=== PATIENT | female | born 1960 | race Caucasian/White ===

== ENCOUNTER 2017-10-29 17:44 | Emergency (ER) | payer OTHER ==
[~2017-10-29] VITALS: Ht 149.9 cm; Wt 65.8 kg
--- OUTSIDE RECORDS SUMMARY | 2017-10-29 17:49 | XMS REPORT ---
Author Author HUBER BOOGIE [facility] Address [address] [place] [address] Care Team Providers Care Account Manager Relief Name Role Phone HUBER BOOGIE Unavailable PROBLEMS Type Condition ICD9-CM Code [id number] Code Onset Dates Condition Status SNOMED Code Problem Other chronic pain G89.29 Active 87919380 Problem Hyperlipidemia, unspecified E78.5 Active 48915689 Problem Anxiety disorder, unspecified F41.9 Active 278522035 Problem Hypertension I10 Active 85710000 ALLERGIES No Information SOCIAL HISTORY Never Assessed PLAN OF CARE VITAL SIGNS MEDICATIONS Medication Instructions Dosage Frequency Start Date End Date Duration Status Xanax 0.5 MG Orally Twice a day 1 tablet 12h 19 Oct, 2016 28 days Active RESULTS No Results PROCEDURES No Known procedures IMMUNIZATIONS No Known Immunizations MEDICAL (GENERAL) HISTORY Type Description Date Medical History fibromyalgia Medical History hypertension Medical History hyperlipidemia Medical History hypoglycemia Surgical History cholecystectomy 1998 Surgical History hysterectomy 1982 Surgical History bilat breast biopsy (x3 total) Surgical History fuction fracture to right foot to restore blood flow to toes Surgical History Breast implants Hospitalization History surgeries
--- OUTSIDE RECORDS SUMMARY | 2017-10-29 17:50 | XMS REPORT ---
Author Author HUBER BOOGIE Organization [facility] Address [address] [place] [address] Care Team Providers Care Product Tester Name Role Phone HUBER BOOGIE Unavailable PROBLEMS Type Condition ICD9-CM Code [id number] Code Onset Dates Condition Status SNOMED Code Problem Hyperlipidemia, unspecified E78.5 Active 63474790 Problem Anxiety disorder, unspecified F41.9 Active 638953334 Problem Hypertension I10 Active 62252859 ALLERGIES Unknown Allergies SOCIAL HISTORY No smoking Hx information available PLAN OF CARE VITAL SIGNS MEDICATIONS Medication Instructions Dosage Frequency Start Date End Date Duration Status Xanax 0.5 MG Orally Twice a day 1 tablet 12h Oct, 28 days Active Gabapentin 300 MG Orally Once a day 1 capsule 24h Active Cyclobenzaprine HCl 10 MG Orally Three times a day 1 tablet 8h Active Atenolol 25 MG Orally Once a day 1 tablet 24h Sep, 90 Active Omeprazole Magnesium 20.6 (20 Base) MG Orally Once a day 1 tablet 24h Active Cymbalta 30 MG Orally Once a day 1 capsule 24h Jul, Active Estrace 1 MG Orally Once a day for HRT 1 tablet 30 Active Lovastatin 20 mg Orally Once a day 1 tablet with a meal 24h May, 30 day(s) Active RESULTS No Results PROCEDURES No Known procedures IMMUNIZATIONS No Known Immunizations
--- OUTSIDE RECORDS SUMMARY | 2017-10-29 17:50 | XMS REPORT ---
Author Author HUBER BOOGIE Organization [employer] Address Unknown Phone Unavailable Care Team Providers Care Resilient Tile Installer Name Role Phone HUBER BOOGIE CP Unavailable Allergies No Known Allergies Problems Problem Type Condition Code Onset Dates Condition Status Problem Hyperlipidemia 272.4 Active Problem Hypertension 401.9 Active Problem Anxiety state, unspecified 300.00 Active Medications Medication Code System Code Instructions Start Date End Date Status Dosage BusPIRone HCl [facility] [address]-06 5 MG Orally, Prn 2 times a day Aug 04, 2015 1 tablet Results No Known Results Summary Purpose [employer] Submission
--- OUTSIDE RECORDS SUMMARY | 2017-10-29 17:50 | XMS REPORT ---
Author Author HUBER BOOGIE [facility] [employer] Address Unknown Phone Unavailable Care Team Providers Care Network Administrator Name Role Phone HUBER BOOGIE CP Unavailable Allergies No Known Allergies Problems Problem Type Condition Code Onset Dates Condition Status Problem Anxiety disorder, unspecified F41.9 Active Problem Hypertension I10 Active Problem Hyperlipidemia, unspecified E78.5 Active Problem Hypertension 401.9 Active Problem Anxiety state, unspecified 300.00 Active Problem Hyperlipidemia 272.4 Active Medications No Known Medications Results No Known Results Summary Purpose [employer] Submission
--- OUTSIDE RECORDS SUMMARY | 2017-10-29 17:50 | XMS REPORT ---
Author Author HUBER BOOGIE [facility] Address [address] [place] [address] Care Team Providers Care Group Work Program Director Name Role Phone HUBER BOOGIE Unavailable PROBLEMS Type Condition ICD9-CM Code [id number] Code Onset Dates Condition Status SNOMED Code Problem Hyperlipidemia, unspecified E78.5 Active 83740386 Problem Anxiety disorder, unspecified F41.9 Active 674572491 Problem Hypertension I10 Active 65370240 ALLERGIES Unknown Allergies SOCIAL HISTORY No smoking Hx information available PLAN OF CARE VITAL SIGNS MEDICATIONS Medication Instructions Dosage Frequency Start Date End Date Duration Status Lovastatin 20 mg Orally Once a day 1 tablet with a meal 24h May, Active RESULTS No Results PROCEDURES No Known procedures IMMUNIZATIONS No Known Immunizations
--- OUTSIDE RECORDS SUMMARY | 2017-10-29 17:50 | XMS REPORT ---
Author Author HUBER BOOGIE [facility] Address [address] [place] [address] Care Team Providers Care Logistics Center Manager Name Role Phone HUBER BOOGIE Unavailable PROBLEMS Type Condition ICD9-CM Code [id number] Code Onset Dates Condition Status SNOMED Code Problem Other chronic pain G89.29 Active 86340242 Problem Hyperlipidemia, unspecified E78.5 Active 30684966 Problem Anxiety disorder, unspecified F41.9 Active 499371873 Problem Hypertension I10 Active 08690802 ALLERGIES No Information SOCIAL HISTORY Never Assessed PLAN OF CARE VITAL SIGNS MEDICATIONS Medication Instructions Dosage Frequency Start Date End Date Duration Status Xanax 0.5 MG Orally Twice a day 1 tablet 12h Oct, 28 days Active RESULTS No Results PROCEDURES [...]
--- OUTSIDE RECORDS SUMMARY | 2017-10-29 17:50 | XMS REPORT ---
Author Author HUBER BOOGIE [facility] Address [address] [place] [address] Care Team Providers Care Bowling Ball Grader And Marker Name Role Phone HUBER BOOGIE Unavailable PROBLEMS Type Condition ICD9-CM Code RAX96-[id number] Code Onset Dates Condition Status SNOMED Code Problem Hyperlipidemia, unspecified E78.5 Active 50660846 Problem Anxiety disorder, unspecified F41.9 Active 728090045 Problem Hypertension I10 Active 20871661 ALLERGIES Unknown Allergies SOCIAL HISTORY No smoking Hx information available PLAN OF CARE VITAL SIGNS MEDICATIONS Medication Instructions Dosage Frequency Start Date End Date Duration Status Xanax 0.5 MG Orally twice a day 1 tablet as needed 12h 17 Sep, 2015 28 days Active RESULTS No Results PROCEDURES No Known procedures IMMUNIZATIONS No Known Immunizations
--- OUTSIDE RECORDS SUMMARY | 2017-10-29 17:50 | XMS REPORT ---
Author Author HUBER BOOGIE Organization [employer] Address Unknown Phone Unavailable Care Team Providers Care Back Panel Padder Name Role Phone HUBER BOOGIE CP Unavailable Allergies No Known Allergies Problems Problem Type Condition Code Onset Dates Condition Status Problem Anxiety disorder, unspecified F41.9 Active Problem Hypertension I10 Active Problem Hyperlipidemia, unspecified E78.5 Active Problem Hypertension 401.9 Active Assessment Anxiety disorder, unspecified F41.9 Active Problem Anxiety state, unspecified 300.00 Active Problem Hyperlipidemia 272.4 Active Medications Medication Code System Code Instructions Start Date End Date Status Dosage Xanax [facility] [address]-26 0.5 MG Orally Once a day Oct 02, 2015 1 tablet at bedtime Results No Known Results Summary Purpose [employer] Submission
--- OUTSIDE RECORDS SUMMARY | 2017-10-29 17:50 | XMS REPORT ---
Author Author HUBER BOOGIE [facility] Address [address] [place] [address] Care Team Providers Care Trailer Assembler Name Role Phone HUBER BOOGIE Unavailable PROBLEMS Type Condition ICD9-CM Code [id number] Code Onset Dates Condition Status SNOMED Code Problem Other chronic pain G89.29 Active 30687871 Problem Hyperlipidemia, unspecified E78.5 Active 41849019 Problem Anxiety disorder, unspecified F41.9 Active 526709552 Problem Hypertension I10 Active 32398476 ALLERGIES No Information SOCIAL HISTORY Never Assessed [...]
--- OUTSIDE RECORDS SUMMARY | 2017-10-29 17:50 | XMS REPORT ---
Author Author HUBER BOOGIE Organization [employer] Address Unknown Phone Unavailable Care Team Providers Care Object Oriented Programmer Name Role Phone HUBER BOOGIE CP Unavailable Allergies No Known Allergies Problems Problem Type Condition Code Onset Dates Condition Status Problem Hypertension I10 Active Problem Anxiety state, unspecified 300.00 Active Problem Anxiety disorder, unspecified F41.9 Active Assessment Anxiety disorder, unspecified F41.9 Active Problem Hyperlipidemia 272.4 Active Problem Hypertension 401.9 Active Medications Medication Code System Code Instructions Start Date End Date Status Dosage Xanax [facility] [address]-88 0.5 MG Orally Once a day Oct 02, 2015 1 tablet at bedtime Results No Known Results Summary Purpose [employer] Submission
--- OUTSIDE RECORDS SUMMARY | 2017-10-29 17:50 | XMS REPORT ---
Author Author HUBER BOOGIE Organization [employer] Address Unknown Phone Unavailable Care Team Providers Care Technology Manager Name Role Phone HUBER BOOGIE CP Unavailable Allergies No Known Allergies Problems Problem Type Condition Code Onset Dates Condition Status Problem Hyperlipidemia 272.4 Active Problem Hypertension 401.9 Active Problem Anxiety state, unspecified 300.00 Active Medications Medication Code System Code Instructions Start Date End Date Status Dosage Atenolol [facility] [address]-92 25 MG Orally Once a day Oct 08, 2015 1 tablet Results No Known Results Summary Purpose [employer] Submission
--- OUTSIDE RECORDS SUMMARY | 2017-10-29 17:50 | XMS REPORT ---
Author Author HUBER BOOGIE [facility] [employer] Address Unknown Phone Unavailable Care Team Providers Care Foreign Service Officer Name Role Phone HUBER BOOGIE Unavailable Allergies, Adverse Reactions, Alerts Substance Reaction Event Type Penicillin V Potassium anaphylaxis Drug Allergy Lisinopril cough Drug Allergy Celexa migraine Drug Allergy Problems Problem Type Condition Code Onset Dates Condition Status Problem Hyperlipidemia 272.4 Active Problem Hypertension 401.9 Active Problem Anxiety state, unspecified 300.00 Active Assessment Insomnia, unspecified type G47.00 Active Assessment Anxiety F41.9 Active Assessment Upper respiratory tract infection, unspecified type J06.9 Active Medications Medication Code System Code Instructions Start Date End Date Status Dosage Xanax [facility] [address]-84 0.5 MG Orally Once a day at bedtime Oct 02, 2015 1 tablet Zoloft [facility] [address]-95 50 MG Orally Oct 02, 2015 0.5 daily for 4 days then 1 a day Alprazolam [facility] [address]-00 1 MG Orally Three times a day 1 tablet Zithromax Z-Navid [facility] [address]-54 250 MG Orally Once a day Oct 02, 2015 Oct 07, 2015 2 tablets on the first day, then 1 tablet daily for 4 days Trazodone HCl [facility] [address]-13 50 MG Orally Once a day for insomnia 1 tablet at bedtime as needed Triamcinolone Acetonide [facility] [address]-91 0.5 % Externally Twice a day Jul 15, 2015 1 application to affected area BusPIRone HCl [facility] [address]-90 5 MG Orally, Prn 2 times a day Aug 04, 2015 1 tablet Pravastatin Sodium [facility] [address]-85 10 MG Orally Once a day 1 tablet Gabapentin [facility] [address]-55 300 MG Orally Three times a day for fibromyalgia 1 capsule Estrace [facility] [address]-23 1 MG Orally Once a day for HRT 1 tablet Cyclobenzaprine HCl [facility] [address]-19 10 MG Orally Once a day Nov 12, 2015 1 tablet Procedures Procedure Coding System Code Date Office Visit, Est Pt., Level 3 CPT-4 58338 Oct 02, 2015 Vital Signs Date/Time: Oct 02, 2015 Temperature 98.1 F Weight 132.4 lbs Height 60 in BMI 25.85 Index Blood Pressure Diastolic 94 mmHg Blood Pressure Systolic 136 mmHg Cardiac Monitoring Heart Rate 96 bpm Results No Known Results Summary Purpose [employer]ClinicalWorks Submission
--- OUTSIDE RECORDS SUMMARY | 2017-10-29 17:50 | XMS REPORT ---
Author Author HUBER BOOGIE [facility] Address [address] [place] [address] Care Team Providers Care Congregational Care Pastor Name Role Phone HUBER BOOGIE Unavailable PROBLEMS Type Condition ICD9-CM Code [id number] Code Onset Dates Condition Status SNOMED Code Problem Other chronic pain G89.29 Active 15412262 Problem Hyperlipidemia, unspecified E78.5 Active 89417407 Problem Anxiety disorder, unspecified F41.9 Active 253568654 Problem Hypertension I10 Active 77544731 ALLERGIES Substance Reaction Event Type Date Status Penicillin V Potassium anaphylaxis Drug Allergy Nov, Active Lisinopril cough Drug Allergy Nov, Active Celexa migraine Drug Allergy Nov, Active SOCIAL HISTORY Never Assessed PLAN OF CARE Activity Details Follow Up 6 Months Reason:anxiety VITAL SIGNS Height 60 in 2016-11-24 Weight 145 lbs 2016-11-24 Heart Rate 72 bpm 2016-11-24 Respiratory Rate 16 2016-11-24 BMI 28.32 kg/m2 2016-11-24 Blood pressure systolic 134 mmHg 2016-11-24 Blood pressure diastolic 88 mmHg 2016-11-24 MEDICATIONS Medication Instructions Dosage Frequency Start Date End Date Duration Status Estrace 1 MG Orally Once a day for HRT 1 tablet 30 Active Omeprazole Magnesium 20.6 (20 Base) MG Orally Once a day 1 tablet 24h Active Cyclobenzaprine HCl 10 MG Orally Three times a day 1 tablet 8h Active Gabapentin 300 MG Orally Once a day 1 capsule 24h Active Cymbalta 30 MG Orally Once a day 1 capsule 24h 25 Jul, 2016 Active Atenolol 25 MG Orally Once a day 1 tablet 24h Sep, 90 Active Xanax 0.5 MG Orally Twice a day 1 tablet 12h Oct, 28 days Active Lovastatin 20 mg Orally Once a day 1 tablet with a meal 24h 10 May, 2016 Active RESULTS No Results PROCEDURES No Known procedures IMMUNIZATIONS No Known Immunizations MEDICAL (GENERAL) HISTORY Type Description Date Medical History fibromyalgia Medical History hypertension Medical History hyperlipidemia Medical History hypoglycemia Surgical History cholecystectomy 1998 Surgical History hysterectomy 1981 Surgical History bilat breast biopsy (x3 total) Surgical History fuction fracture to right foot to restore blood flow to toes Surgical History Breast implants Hospitalization History surgeries
--- OUTSIDE RECORDS SUMMARY | 2017-10-29 17:50 | XMS REPORT ---
Author Author REED REYNOSO [facility] Address [address] [place] [address] Care Team Providers Care Warehouse Representative Name Role Phone REED REYNOSO Unavailable PROBLEMS Type Condition ICD9-CM Code FSC53-LT Code Onset Dates Condition Status SNOMED Code Problem Hyperlipidemia, unspecified E78.5 Active 04927866 Problem Anxiety disorder, unspecified F41.9 Active 010260408 Problem Hyperlipidemia 272.4 Active 88706548 Problem Hypertension 401.9 Active 29798962 Problem Hypertension I10 Active 04618934 Problem Anxiety state, unspecified 300.00 Active 372791634 ALLERGIES Unknown Allergies SOCIAL HISTORY No smoking Hx information available PLAN OF CARE VITAL SIGNS MEDICATIONS Medication Instructions Dosage Frequency Start Date End Date Duration Status Zithromax Z-Navid 250 MG Orally Once a day 2 tablets on the first day, then 1 tablet daily for 4 days 24h Sep, Sep, 5 day(s) Active RESULTS No Results PROCEDURES No Known procedures IMMUNIZATIONS No Known Immunizations
--- OUTSIDE RECORDS SUMMARY | 2017-10-29 17:50 | XMS REPORT ---
Author Author HUBER BOOGIE Organization [employer] Address Unknown Phone Unavailable Care Team Providers Care Project Assistant Name Role Phone HUBER BOOGIE CP Unavailable Allergies No Known Allergies Problems Problem Type Condition Code Onset Dates Condition Status Problem Anxiety disorder, unspecified F41.9 Active Problem Hypertension I10 Active Problem Hyperlipidemia, unspecified E78.5 Active Problem Hypertension 401.9 Active Problem Anxiety state, unspecified 300.00 Active Problem Hyperlipidemia 272.4 Active Medications Medication Code System Code Instructions Start Date End Date Status Dosage Xanax [facility] [address]-04 0.5 MG Orally twice a day Oct 02, 2015 1 tablet as needed Results No Known Results Summary Purpose eClinicalWorks Submission
--- OUTSIDE RECORDS SUMMARY | 2017-10-29 17:50 | XMS REPORT ---
Author Author HUBER BOOGIE [facility] Address [address] [place] [address] Care Team Providers Care Animal Husbandman Name Role Phone HUBER BOOGIE Unavailable PROBLEMS Type Condition ICD9-CM Code [id number] Code Onset Dates Condition Status SNOMED Code Problem Hyperlipidemia, unspecified E78.5 Active 32662782 Problem Anxiety disorder, unspecified F41.9 Active 342123773 Problem Hypertension I10 Active 92855598 ALLERGIES Unknown Allergies SOCIAL HISTORY No smoking Hx information available PLAN OF CARE VITAL SIGNS MEDICATIONS Unknown Medications RESULTS Name Result Date Reference Range LIPID PANEL 2016-11-11 Cholesterol, Total 223 100-199 Triglycerides 100 0-149 HDL Cholesterol 77 >39 VLDL Cholesterol Yifan 20 5-40 LDL Cholesterol Calc 126 0-99 Comment: PROCEDURES Procedure Date Ordered Related Diagnosis Body Site LIPID PANEL Nov 11, 2016 VENIPUNCT, ROUTINE* Nov 11, 2016 IMMUNIZATIONS No Known Immunizations
--- OUTSIDE RECORDS SUMMARY | 2017-10-29 17:50 | XMS REPORT ---
Author Author HUBER BOOGIE [facility] eClinicalWorks Address Unknown Phone Unavailable Care Team Providers Care Transmission Builder Name Role Phone HUBER BOOGIE CP Unavailable Allergies, Adverse Reactions, Alerts Substance Reaction Event Type Penicillin V Potassium anaphylaxis Drug Allergy Lisinopril cough Drug Allergy Problems Problem Type Condition Code Onset Dates Condition Status Assessment Family history of breast cancer V16.3 Active Assessment Eczema 692.9 Active Assessment Family history of diabetes mellitus V18.0 Active Problem Hyperlipidemia 272.4 Active Problem Hypertension 401.9 Active Problem Anxiety state, unspecified 300.00 Active Assessment Hyperlipidemia 272.4 Active Assessment Hypertension 401.9 Active Assessment Encounter to establish care V65.8 Active Assessment Fibromyalgia 729.1 Active Medications Medication Code System Code Instructions Start Date End Date Status Dosage Alprazolam [facility] [address]-33 1 MG Orally Three times a day 1 tablet Estrace [facility] [address]-03 1 MG Orally Once a day for HRT 1 tablet Cyclobenzaprine HCl [facility] [address]-67 10 MG Orally Once a day Nov 12, 2015 1 tablet Pravastatin Sodium [facility] [address]-96 10 MG Orally Once a day 1 tablet Gabapentin [facility] [address]-35 300 MG Orally Three times a day for fibromyalgia 1 capsule Trazodone HCl [facility] [address]-94 50 MG Orally Once a day for insomnia 1 tablet at bedtime as needed Triamcinolone Acetonide [facility] [address]-66 0.5 % Externally Twice a day Jul 15, 2015 1 application to affected area Procedures Procedure Coding System Code Date DTAP (INFARIX) CPT-4 50449 Jul 15, 2015 FLUARIX QUAD (3 & UP)--2014 CPT-4 42865 Jul 15, 2015 Office Visit, New Pt., Level 3 CPT-4 47856 Jul 15, 2015 IMMUNIZATION ADMIN, EACH ADD (please include units) CPT-4 65516 Jul 15, 2015 SINGLE IMMUNIZATION ADMIN CPT-4 72583 Jul 15, 2015 Vital Signs Date/Time: Jul 15, 2015 Temperature 98.0 F Weight 126.7 lbs Height 60 in BMI 24.74 Index Blood Pressure Diastolic 74 mmHg Blood Pressure Systolic 132 mmHg Cardiac Monitoring Heart Rate 80 bpm Results No Known Results Immunizations Vaccine Administration Date DTAP (INFARIX) Jul 15, 2015 FLUARIX QUAD (3 & UP)-GSK-2014Jul 15, 2015 Summary Purpose eClinicalWorks Submission
--- OUTSIDE RECORDS SUMMARY | 2017-10-29 17:51 | XMS REPORT ---
Author Author HUBER BOOGIE Organization [employer] Address Unknown Phone Unavailable Care Team Providers Care Regional Maintenance Manager Name Role Phone HUBER BOOGIE CP Unavailable Allergies No Known Allergies Problems Problem Type Condition Code Onset Dates Condition Status Problem Anxiety disorder, unspecified F41.9 Active Problem Hypertension I10 Active Problem Hyperlipidemia, unspecified E78.5 Active Problem Hypertension 401.9 Active Problem Anxiety state, unspecified 300.00 Active Problem Hyperlipidemia 272.4 Active Medications Medication Code System Code Instructions Start Date End Date Status Dosage Xanax [facility] [address]-82 0.5 MG Orally twice a day Oct 02, 2015 1 tablet at bedtime Results No Known Results Summary Purpose eClinicalWorks Submission
--- OUTSIDE RECORDS SUMMARY | 2017-10-29 17:51 | XMS REPORT ---
Author Author HUBER BOOGIE Organization [employer] Address Unknown Phone Unavailable Care Team Providers Care American History Teacher Name Role Phone HUBER BOOGIE CP Unavailable Allergies No Known Allergies Problems Problem Type Condition Code Onset Dates Condition Status Problem Hypertension I10 Active Problem Anxiety state, unspecified 300.00 Active Problem Anxiety disorder, unspecified F41.9 Active Assessment Anxiety disorder, unspecified F41.9 Active Problem Hyperlipidemia 272.4 Active Problem Hypertension 401.9 Active Medications Medication Code System Code Instructions Start Date End Date Status Dosage Xanax [facility] [address]-05 0.5 MG Orally Once a day Oct 02, 2015 1 tablet at bedtime Results No Known Results Summary Purpose [employer]ClinicalWorks Submission
--- OUTSIDE RECORDS SUMMARY | 2017-10-29 17:51 | XMS REPORT ---
Author Author HUBER BOOGIE [facility] Address [address] [place] [address] Care Team Providers Care Transport Tank Technician Name Role Phone HUBER BOOGIE Unavailable PROBLEMS Type Condition ICD9-CM Code [id number] Code Onset Dates Condition Status SNOMED Code Problem Other chronic pain G89.29 Active 74371024 Problem Hyperlipidemia, unspecified E78.5 Active 09064136 Problem Anxiety disorder, unspecified F41.9 Active 984530826 Problem Hypertension I10 Active 98953887 ALLERGIES No Information SOCIAL HISTORY Never Assessed PLAN OF CARE VITAL SIGNS MEDICATIONS Unknown Medications RESULTS No Results PROCEDURES No Known procedures [...]
--- OUTSIDE RECORDS SUMMARY | 2017-10-29 17:51 | XMS REPORT ---
Author Author HUBER BOOGIE Organization [employer] Address Unknown Phone Unavailable Care Team Providers Care Machine Ii Coremaker Name Role Phone HUBER BOOGIE CP Unavailable Allergies No Known Allergies Problems Problem Type Condition Code Onset Dates Condition Status Problem Hyperlipidemia 272.4 Active Problem Hypertension 401.9 Active Problem Anxiety state, unspecified 300.00 Active Medications Medication Code System Code Instructions Start Date End Date Status Dosage Celexa [facility] [address]-44 10 MG Orally Once a day Jul 16, 2015 1 tablets Results No Known Results Summary Purpose [employer]ClinicalWorks Submission
--- OUTSIDE RECORDS SUMMARY | 2017-10-29 17:51 | XMS REPORT ---
Author Author HUBER BOOGIE [facility] Address [address] [place] [address] Care Team Providers Care Advertising Dispatch Clerk Name Role Phone HUBER BOOGIE Unavailable PROBLEMS Type Condition ICD9-CM Code QGX25-BI Code Onset Dates Condition Status SNOMED Code Problem Hyperlipidemia, unspecified E78.5 Active 23158148 Problem Anxiety disorder, unspecified F41.9 Active 365025225 Problem Hyperlipidemia 272.4 Active 75398600 Problem Hypertension 401.9 Active 77574045 Problem Hypertension I10 Active 97139541 Problem Anxiety state, unspecified 300.00 Active 487687053 ALLERGIES Unknown Allergies SOCIAL HISTORY No smoking Hx information available PLAN OF CARE VITAL SIGNS MEDICATIONS Medication Instructions Dosage Frequency Start Date End Date Duration Status Xanax 0.5 MG Orally twice a day 1 tablet at bedtime 12h Sep, 28 days Active RESULTS No Results PROCEDURES No Known procedures IMMUNIZATIONS No Known Immunizations
--- OUTSIDE RECORDS SUMMARY | 2017-10-29 17:51 | XMS REPORT ---
Author Author HUBER BOOGIE Organization [employer] Address Unknown Phone Unavailable Care Team Providers Care Consultant Technology Name Role Phone HUBER BOOGIE CP Unavailable Allergies No Known Allergies Problems Problem Type Condition Code Onset Dates Condition Status Problem Anxiety disorder, unspecified F41.9 Active Problem Hypertension I10 Active Problem Hyperlipidemia, unspecified E78.5 Active Problem Hypertension 401.9 Active Assessment Hyperlipidemia, unspecified E78.5 Active Problem Anxiety state, unspecified 300.00 Active Problem Hyperlipidemia 272.4 Active Medications Medication Code System Code Instructions Start Date End Date Status Dosage Gabapentin [facility] [address]-36 100 MG Orally Three times a day 1 tablet Xanax [facility] [address]-23 0.5 MG Orally Once a day Oct 02, 2015 1 tablet at bedtime Atenolol [facility] [address]-22 25 MG Orally Once a day Oct 08, 2015 1 tablet Gabapentin [facility] [address]-87 300 MG Orally Three times a day for fibromyalgia 1 capsule Atenolol [facility] [address]-04 25MG TAKE ONE TABLET BY MOUTH ONCE DAILY Quetiapine Fumarate [facility] [address]-17 25 MG Orally Once a day 1 tablet Lovastatin [facility] [address]-53 20 mg Orally Once a day May 26, 2016 1 tablet with a meal Estrace [facility] [address]-71 1 MG Orally Once a day for HRT 1 tablet Zoloft [facility] [address]-63 100 MG Orally Once a day Oct 02, 2015 1 tablet Cyclobenzaprine HCl [facility] [address]-64 10 MG Orally Three times a day 1 tablet Rexulti [facility] [address]-08 0.5 MG Orally Once a day 1 tablet Omeprazole Magnesium [facility] [address]-49 20.6 (20 Base) MG Orally Once a day 1 tablet Results No Known Results Summary Purpose [employer] Submission
--- OUTSIDE RECORDS SUMMARY | 2017-10-29 17:51 | XMS REPORT ---
Author Author HUBER BOOGIE [facility] [employer] Address Unknown Phone Unavailable Care Team Providers Care Global Vp Creative + Content Marketing Name Role Phone HUBER BOOGIE CP Unavailable Allergies, Adverse Reactions, Alerts Substance Reaction Event Type Penicillin V Potassium anaphylaxis Drug Allergy Lisinopril cough Drug Allergy Celexa migraine Drug Allergy Problems Problem Type Condition Code Onset Dates Condition Status Assessment Hormone replacement therapy Z79.890 Active Assessment Anxiety disorder, unspecified F41.9 Active Assessment Hypertension I10 Active Assessment Encounter for immunization Z23 Active Problem Anxiety disorder, unspecified F41.9 Active Problem Hypertension I10 Active Problem Hyperlipidemia, unspecified E78.5 Active Problem Hypertension 401.9 Active Assessment Dysuria R30.0 Active Problem Anxiety state, unspecified 300.00 Active Problem Hyperlipidemia 272.4 Active Medications Medication Code System Code Instructions Start Date End Date Status Dosage Cymbalta [facility] [address]-13 30 MG Orally Once a day Aug 10, 2016 1 capsule Cyclobenzaprine HCl [facility] [address]-04 10 MG Orally Three times a day 1 tablet Gabapentin [facility] [address]-53 300 MG Orally Once a day 1 capsule Xanax [facility] [address]-82 0.5 MG Orally twice a day Oct 02, 2015 1 tablet at bedtime Atenolol [facility] [address]-59 25 MG Orally Once a day Oct 08, 2015 1 tablet Lovastatin [facility] [address]-35 20 mg Orally Once a day May 26, 2016 1 tablet with a meal Estrace [facility] 47527191090 1 MG Orally Once a day for HRT 1 tablet Omeprazole Magnesium [facility] [address]-10 20.6 (20 Base) MG Orally Once a day 1 tablet Procedures Procedure Coding System Code Date FLUARIX QUAD P-FREE 3 AND UP .50 2015 CPT-4 28741 Aug 10, 2016 Office Visit, Est Pt., Level 3 CPT-4 29818 Aug 10, 2016 URINALYSIS, AUTO, W/O SCOPE CPT-4 13749 Aug 10, 2016 SINGLE IMMUNIZATION ADMIN CPT-4 52494 Aug 10, 2016 ZOSTER (ZOSTAVAX) CPT-4 27968 Aug 10, 2016 IMMUNIZATION ADMIN, EACH ADD (please include units) CPT-4 46439 Aug 10, 2016 Vital Signs Date/Time: Aug 10, 2016 Cardiac Monitoring Heart Rate 70 bpm Weight 146 lbs Height 60 in BMI 28.51 Index Blood Pressure Diastolic 92 mmHg Blood Pressure Systolic 132 mmHg Results Name Result Date Reference Range Unit Abnormality Flag UA LONG DIP (IN HOUSE) ----HEATHER Negative 20160810 ----NIT Negative 20160810 ----SG 1.010 [id number] ----KET Negative [id number] ----REINALDO Negative 20160810 ----GLU negative [id number] ----Odor none 20160810 ----pH 5.0 [id number] ----BLO Trace-Intact 20160810 ----URO 0.2 [id number] ----Protein Negative 20160810 ----Lot # [id number] ----Exp date [id number] ----Clarity clear 20160810 ----Color yellow [id number] CT Scan : Abd & Pelvis w/o contrast (STONE PROTOCOL) Immunizations Vaccine Administration Date FLUARIX QUAD P-FREE 3 AND UP .50 2015Aug 10, 2016 ZOSTER (ZOSTAVAX) Aug 10, 2016 Summary Purpose [employer] Submission
--- OUTSIDE RECORDS SUMMARY | 2017-10-29 17:51 | XMS REPORT ---
Author Author HUBER BOOGIE [facility] [employer] Address Unknown Phone Unavailable Care Team Providers Care Repairer Handtools Name Role Phone HUBER BOOGIE CP Unavailable [...] Date Status Dosage Xanax [facility] [address]-00 0.5 MG Orally twice a day Oct 02, 2015 1 tablet at bedtime Atenolol [facility] [address]-83 25 MG Orally Once a day Oct 08, 2015 1 tablet Estrace [facility] 62495922452 1 MG Orally Once a day for HRT 1 tablet Results No Known Results Summary Purpose [employer] Submission
--- OUTSIDE RECORDS SUMMARY | 2017-10-29 17:51 | XMS REPORT ---
Author Author REED REYNOSO [facility] Address [address] [place] [address] Care Team Providers Care Pick Pulling Machine Tender Name Role Phone REED REYNOSO Unavailable PROBLEMS Type Condition ICD9-CM Code LUA47-RL Code Onset Dates Condition Status SNOMED Code Problem Hyperlipidemia, unspecified E78.5 Active 10007386 Problem Anxiety disorder, unspecified F41.9 Active 341658566 Problem Hyperlipidemia 272.4 Active 71910667 Problem Hypertension 401.9 Active 99924274 Problem Hypertension I10 Active 15840965 Problem Anxiety state, unspecified 300.00 Active 114785329 ALLERGIES Unknown Allergies SOCIAL HISTORY No smoking [...]
--- NOTE | 2017-10-29 19:11 | ED Cough/URI ---
General Chief Complaint: Cough/Cold/Flu Symptoms Stated Complaint: FLU SYMPTOMS Nursing Triage Note: Patient advises she had a recent exposure to a family member with the flu. Since then she has been experiencing flu like symptoms cough, congestion and fever x 3 days. Source: patient Exam Limitations: no limitations History of Present Illness Time seen by provider: 18:45 Initial Comments Here with report of cough, fever, congestion that has been going on for actually 2 days. Does have sick contacts with family members that are flu positive. Denies nausea or vomiting. Timing/Duration: getting worse Severity/Quality: moderate, dry cough Associated Symptoms: cough, fever/chills, muscle aches, nasal congestion, nasal drainage Allergies and Home Medications Allergies Uncoded Allergies: PENICILLIN (Allergy, Severe, 10/29/17) Constitutional: see HPI, chills, fever EENTM: see HPI Respiratory: see HPI, No short of breath, No wheezing Cardiovascular: no symptoms reported Gastrointestinal: No diarrhea, No nausea, No vomiting Genitourinary: no symptoms reported Musculoskeletal: no symptoms reported All Other Systems Reviewed Negative Unless Noted: Yes Past Vmyihmq-[id number]-Dykhnb Hx Patient Social History Alcohol Use: Denies Use Recreational Drug Use: No Smoking Status: Never a Smoker Recent Foreign Travel: No Contact w/Someone Who Travel: No Recent Infectious Disease Expo: No Recent Hopitalizations: No Physical Abuse: No Sexual Abuse: No Surgeries History of Surgeries: Yes (sinus) Surgeries: Hysterectomy Respiratory History of Respiratory Disorde: No Cardiovascular History of Cardiac Disorders: Yes Cardiac Disorders: Hypertension Neurological History of Neurological Disord: No Genitourinary History of Genitourinary Disor: No Gastrointestinal History of Gastrointestinal Di: Yes Gastrointestinal Disorders: Gall Bladder Disease Musculoskeletal History of Musculoskeletal Dis: No Endocrine History of Endocrine Disorders: No HEENT History of HEENT Disorders: No Cancer History of Cancer: No Psychosocial History of Psychiatric Problem: No Suicide Risk Score: 0 Integumentary History of Skin or Integumenta: No Reviewed Nursing Assessment Reviewed/Agree w Nursing PMH: Yes Family Medical History Significant Family History: No Pertinent Family Hx Physical Exam Vital Signs Vital Sign - Last 12Hours 10/29/17 17:53 Temp 99.4 Pulse 105 Resp 18 B/P (MAP) 115/77 (90) Pulse Ox 94 O2 Delivery Room Air Capillary Refill : Less Than 3 Seconds General Appearance: WD/WN, no apparent distress HEENT: PERRL/EOMI, TMs normal, pharynx normal, other (moderate clear rhinorrhea with nasal congestion and erythema.) Neck: full range of motion, supple Respiratory: lungs clear, normal breath sounds Cardiovascular: regular rate, rhythm, no murmur Gastrointestinal: non tender, soft Extremities: non-tender, normal inspection Neurologic/Psychiatric: alert, oriented x 3 Skin: normal color, warm/dry Progress/Results/Core Measures Suspected Sepsis Recent Fever Within 48 Hours: Yes Infection Criteria Present: Suspected New Infection New/Unexplained Altered Menta: No Sepsis Screen: Possible Sepsis Risk Sepsis Diagnosis: SIRS Temperature:99.4 Pulse: 105 Respiratory Rate: 18 Blood Pressure 115 /77 Mean: 90 Results/Orders Micro Results Microbiology 10/29/17 Influenza Types A,B Antigen (MOE) - Final, Complete Vital Signs/I&O Vital Sign - Last 12Hours 10/29/17 10/29/17 17:53 17:53 Temp 99.4 Pulse 105 Resp 18 B/P (MAP) 115/77 (90) Pulse Ox 94 O2 Delivery Room Air Room Air Capillary Refill : Less Than 3 Seconds Blood Pressure Mean: 90 Progress Note : Progress Note Seen and evaluated. Influenza screen done that was negative. Do still believe this is influenza. We will initiate Tamiflu is she is inside the today timeframe. Discharged home with return precautions. Patient verbalize understanding instructions and agreement with plan. Departure Impression Impression: Primary Impression: Influenza Disposition: 01 HOME, SELF-CARE Condition: Stable Departure-Patient Inst. Decision time for Depature: 19:10 Referrals: RANI DAWN DO (PCP) Primary Care Physician HUBER BOOGIE (Family) Primary Care Physician Patient Instructions: Flu, Adult (DC) Add. Discharge Instructions: All discharge instructions reviewed with patient and/or family. Voiced understanding. Take medications as directed. Follow-up with your DrOpal in a few days for recheck. Return for worse pain, fever, vomiting, weakness, breathing problems or other concerns as needed. You may take ibuprofen 600 mg every 8 hours as needed for pain. You may take Tylenol 1000 mg every 8 hours as needed for pain. Drink plenty of fluids. You may take Benadryl 25 mg every 6 hours as needed for nasal congestion and runny nose. FLOR MORENO MD Oct 29, 2017 19:11
[2017-10-29] MEDS ORDERED: RX-OSELTAMIVIR 75 MG (TAMIFLU) BOX OF 10 PO STA (19:12)
[2017-10-29 19:20] VITALS: BP 115/77
== END 2017-10-29 19:20 | disposition home or self-care (01) ==
LOC: EDUNIT# 17:44 → ER 17:45
DX: J11.1 Influenza due to unidentified influenza virus with other respiratory manifestations (principal); I10 Essential (primary) hypertension; Z87.19 Personal history of other diseases of the digestive system; Z90.710 Acquired absence of both cervix and uterus
CPT/HCPCS: 87804; 99282; 99283